=== PATIENT | female | born 1960 | race Two or more races ===

== ENCOUNTER 2019-03-03 15:11 | Emergency (ER) | payer SELFPAY ==
[~2019-03-03] VITALS: Ht 152.4 cm; Wt 107.9 kg
[2019-03-03] MEDS ORDERED: CLON-457 PO (15:34)
[2019-03-03] MEDS ORDERED: RISP2TAB22 PO (15:34)
[2019-03-03] MEDS ORDERED: DIVA-75 PO (15:34)
[2019-03-03] MEDS ORDERED: AMLO5TAB88 PO (15:34)
[2019-03-03 20:41] LABS: BASOPHILS % 0.7 % (0.0-2.0); EOSINOPHILS % 1.5 % (0.0-5.0); HEMATOCRIT. 44.1 % (36.0-48.0); HEMOGLOBIN. 14.8 g/dL (12.0-16.0); LYMPHOCYTES % 20.9 % (20.0-50.0); MEAN CORPUSCULAR HEMOGLOBIN 28.3 pg (28.0-32.0); MEAN CORPUSCULAR VOLUME 84.4 fL (81.0-99.0); MEAN PLATELET VOLUME 7.4 fl (7.4-10.4); MONOCYTES % 6.3 % (2.0-8.0); NEUTROPHILS % 70.6 % (40.0-76.0); PLATELET 251 x1000/uL (130-400); RED BLOOD CELL COUNT 5.22 mill/uL (4.2-5.4); RED CELL DISTRIBUTION WIDTH 16.1 % (11.6-14.6)
[2019-03-03 20:44] LABS: CHLORIDE 102 mEq/L (98-107)
[2019-03-03 20:45] LABS: PROTHROMBIN TIME 10.3 sec (9.6-11.0)
[2019-03-03 21:55] LABS: CLARITY URINE CLOUDY (CLEAR); COLOR URINE YELLOW (YELLOW); KETONES URINE NEGATIVE (NEGATIVE); LEUKOCYTE ESTERASE URINE 2+ (NEGATIVE); NITRITE URINE NEGATIVE (NEGATIVE); OCCULT BLOOD URINE NEGATIVE (NEGATIVE); PROTEIN URINE NEGATIVE (NEGATIVE); SPECIFIC GRAVITY URINE 1.013 (1.005-1.030); UROBILINOGEN URINE 0.2 E.U./dL (0.2-1.0)
[2019-03-03] MEDS ORDERED: CEFTRIAXONE 1 G PREMIX 50 ML IV ONE (22:30)
[2019-03-04 01:29] VITALS: BP 158/85
== END 2019-03-04 01:33 | disposition home or self-care (01) ==
LOC: ER 15:11
DX: M79.662 Pain in left lower leg (principal); M79.661 Pain in right lower leg; N39.0 Urinary tract infection, site not specified; E78.00 Pure hypercholesterolemia, unspecified; I10 Essential (primary) hypertension; F20.9 Schizophrenia, unspecified; A01.4 Paratyphoid fever, unspecified; F17.200 Nicotine dependence, unspecified, uncomplicated
CPT/HCPCS: 36415; 71045; 80053; 81003; 83880; 84484; 85025; 85610; 87086; 93970; 96374; 99284; J0696